=== PATIENT | female | born 1940 | race Caucasian/White ===

== ENCOUNTER → 2022-08-09 08:00 | Outpatient (CLI) | payer OTHER, SELFPAY ==
[2022-07-29 10:41] VITALS: BMI 32.1
[2022-08-08] MEDS: ACETAMINOPHEN 325 MG TABLET 975 MG PO (06:43)
[2022-08-08] MEDS: VANCOMYCIN 1,000 MG/200 ML PIGGYBACK 200 MG IV (06:44)
[2022-08-08] MEDS: CELECOXIB 200 MG CAPSULE PO (06:44)
[2022-08-08 07:10] LABS: COVID19 -Nasal RAPID POSITIVE (Negative)
--- NOTE | 2022-08-08 07:16 | SUR.PREOP ---
Patient tested positive for covid; OR charge nurse and Surgeon Dr Vazquez notified. Patient notified of need to cancel surgery.
--- NOTE | 2022-08-08 07:44 | SUR.PREOP ---
Pt. tested positive for covid . Dr. Vazquez cancelled surgery . Pt instructed to continue lovenox and restart coumadin and notify can sorter today. pt. discharged
== END ==
LOC: AC 14:18 → LAB 08-12 08:43
PROVIDERS: Family Provider Nurse Practitioner; PCP Nurse Practitioner; Referring Provider Orthopaedic Surgery; Visit Provider Orthopaedic Surgery
DX: T84.029A Dislocation of unspecified internal joint prosthesis, initial encounter (principal); Z20.822 Contact with and (suspected) exposure to COVID-19
CPT/HCPCS: 87635; C9803; J1100; J2274; J2405; J2704; J3010

== ENCOUNTER 2022-09-19 06:07 | Inpatient (IN) | payer OTHER, SELFPAY ==
[2022-09-03 07:17] VITALS: BMI 32.1
[2022-09-19] VITALS (17 sets, daily range): BP systolic 103–132; BP diastolic 42–74; PULSE 57–72; RESP 12–18; TEMP 35.3–36.6; O2SAT 92–100; BMI 32.1
--- NOTE | 2022-09-19 | DI.RAD.S_ITS ---
PROCEDURE: XR HIP W PEL IF DONE LT 2V INDICATIONS: LEFT HIP REVISION TECHNIQUE: AP pelvis and lateral view of the left hip acquired. COMPARISON: None. FINDINGS: Bones: Patient is status post left hip arthroplasty, with hardware components in expected positions. The hip joint appears congruent. The visualized bony structures appear intact. Soft tissues: Overlying postoperative changes are noted. No suspicious soft tissue densities. IMPRESSION: Postop changes from left total hip arthroplasty with anatomic left hip alignment. Dictated by: Harish Prajapati M.D. on 09/19/2022 at 11:52 Approved by: Harish Prajapati M.D. on 09/19/2022 at 11:52
[2022-09-19 07:18] LABS: COVID19 -Nasal RAPID Negative (Negative)
[2022-09-19] MEDS: LACTATED RINGERS 1,000 ML 42 ML IV ×2 (07:25→09:04)
[2022-09-19] MEDS: VANCOMYCIN 1,000 MG/200 ML PIGGYBACK 200 MG IV (07:42)
--- NOTE | 2022-09-19 07:46 | PM.PREOP ---
Pre-operative Note COVID-19 COVID-19 status: Negative Interval Note History & Physical reviewed/Exam performed by Physician: Yes Changes to H&P: No
--- NOTE | 2022-09-19 07:47 | PM.OP.1 ---
Operative Date/Time/Diagnoses Date of procedure: 09/19/22 Time of procedure: 07:55 Pre-op diagnosis: left hip instability, trochanteric fracture Post-op diagnosis: same Procedure & Clinicians Procedure: right total hip revision, ORIF trochanter fracture Same procedure as scheduled: Yes Indications: This is an 82-year-old female with history of a left total hip arthroplasty which was done many years ago. She has a multiple level spine fusion. She had a fall and then started having problems with recurrent left hip posterior instability which required multiple reductions. She also had a small trochanteric fracture. She is brought the operating room for a left hip revision. Surgeon: Kylie Vazquez Production Assembly Operator: Chen Sow Anesthesia Type: General Operative Notes Findings: No evidence of component loosening, no evidence consistent with an infection, improved stability with conversion of a left total hip posterior lipped acetabulum to a dual mobility construct. Closure Type: primary Specimen(s): none sent Prosthetic devices, grafts, tissues, transplants, or devices: Vazquez [employer] Nephew size 52 dual mobility liner Oxinium with a +4 femoral head, multiple sutures placed for suture repair of the trochanteric fracture Estimated Blood Loss (mL): 250 Blood products transfused: none Procedure in detail: The patient was seen in the pre-operative area, where the patient identified the left hip as the operative site and this was marked with my initials. The patient received pre-operative antibiotics and was taken to the operating room and placed on the operative table in the right lateral decubitus position after satisfactory anesthesia. A manager learning out was performed. The left leg was prepared from the ankle to the iliac crest with ChloroPrep in the usual fashion and draped through sterile drapes. The hip was approached through an approximately 20 cm incision centered over the greater trochanter and curving gently posteriorly as it went proximally. This was carried sharply to the fascia kristopher, which was divided and retracted with a self retaining retractor. The trochanteric bursa was excised with care being taken to avoid the sciatic nerve, which was identified and protected throughout the case. The residual capsule and short external rotators were incised and the capsulomuscular flap was raised and tagged for later repair. The hip stability was meticulously checked. She had instability in flexion with maximum abduction and about 45? of internal rotation. There was obvious injury to the lip of the lipped liner. There was no fracture but there was obvious deformity. Deep cultures were sent and tissue was sent for PCR. Dissection was carried out around the rim of the acetabular component. There was actually a fairly small amount of fluid in the hip capsule. The hip was dislocated, and the femoral liner was removed. Retractors were placed around the femur. The femoral component was checked and was noted to be stable. The head was removed with a tamp. Retractors were placed to expose the acetabulum. Meticulous dissection was carried out around the acetabulum and the liner was removed without difficulty. Deep cultures were sent deep to the acetabulum. A trial neutral dual mobility liner was placed. A trial reduction was performed with a +0 and a +4 dual mobility construct. With the +4 construct, The patient was stable in the position of sleep, of squatting, and could be put through a range of motion with 45 degrees internal rotation without dislocation. At 90 degrees flexion, internal rotation to 80? was possible before dislocation. There was no impingement. The soft tissue anteriorly was specifically checked to make sure that there was no soft tissue impingement. This was felt to be satisfactory and the appropriate components were opened, and the trials were removed. The acetabular liner was impacted into position. A brief Betadine soak was performed while trialing with head options. The hip was meticulously irrigated with normal saline. Finally the femoral head was impacted onto the stem. The acetabulum was cleared of all material and the hip relocated one final time. The capsulomuscular flap was then repaired to the greater trochanter though an awl hole using the tag sutures. The short external rotators were repaired with a nonabsorbable suture. The trochanteric fracture was fixed with multiple sutures which were non absorbing pulling the hip abductors and the fracture fragment back to the trochanteric region. Adequate reduction was achieved. The fascia kristopher was closed with Vicryl. The subcutaneous layer was closed with barbed sutures and SteriStrips. A ariana dressing was applied and the patient was taken to recovery having tolerated the procedure well. Complications: none Post-operative Condition: stable Disposition: Acute Care Plan for aftercare: The patient will be maintained on a standard total hip replacement protocol with weight bearing as tolerated and posterior hip precautions. No hip abductor strengthening exercises for 6 weeks postoperatively. The patient will receive warfarin and sequential compression devices for DVT prophylaxis. She will not start her Lovenox bridging until Thursday and then I would do bridging for 1-2 days and we will immediately resume her preoperative Coumadin dose. The patient will be discharged home when safe for the home environment.
[2022-09-19] MEDS: CEFAZOLIN 2 GM/100 ML PREMIX 100 ML IV ×2 (08:25→18:20)
[2022-09-19] MEDS: BUPIVACAINE LIPOSOME 266 MG/20 ML VIAL INJ (08:43)
[2022-09-19] MEDS: BUPIVACAINE 0.5% (PF) 30 ML, EPINEPHrine 0.15 MG INJ (08:43)
--- NOTE | 2022-09-19 08:55 | SUR.OPER ---
Lateral on padded OR bed. Gel axillary roll. Arms secured on padded armboard with pillow supporting top arm. Padded hip positioner braces x4 - anterior and posterior chest and pelvis. Additional gel pad used anterior pelvis. Gel pad under bottom leg from knee to foot and secured with tape over sheet.
--- NOTE | 2022-09-19 11:27 | SUR.PHASEI ---
Report given to JESSE Sanchez. Patient VSS and denies pain. Dressing CDI. Patient going to 214. Son called and left VM. No answer. Belonging sent up to patient room (CPAP, and bags of belongings). Rosendo Linda RN.
[2022-09-19] MEDS: ACETAMINOPHEN 325 MG TABLET 650 MG PO ×3 (12:57→23:09)
[2022-09-19] MEDS: LACTATED RINGERS 1,000 ML 100 ML IV ×2 (12:57→23:08)
--- NOTE | 2022-09-19 15:41 | PT.IIE ---
Current Diagnoses Dislocation of unspecified internal joint prosthesis, initial encounter (09/19/22) Presence of left artificial hip joint (09/19/22) Surgery Performed Operation Date: 09/19/22 07:45 Actual Procedures p Total Hip Arthroplasty Revision, acetabular component,(Left) - Kylie Vazquez MD s Open reduction internal fixation, fracture, femur, trochanter(Left) - Kylie Vazquez MD Surgical History (Last Updated 07/29/22 @ 10:49 by Vickie Cuadra RN) History of hysterectomy History of lumbar spinal fusion History of total left hip replacement (05/22/17) History of total left knee replacement History of total right hip replacement Hx of colonoscopy Medical History (Last Updated 09/03/22 @ 08:08 by Vickie Cuadra RN) Acid reflux Anxiety and depression DVT (deep venous thrombosis) History of COVID-19 (08/08/22) Impaired fasting glucose Memory deficit Sleep apnea TIA (transient ischemic attack) (2018) Physical Therapy Inpatient Evaluation/Re-Eval M1 PT/OT-IP Prior Functional Status Start: 09/19/22 14:46 Freq: NEEDED Status: Active Protocol: Document 09/19/22 16:08 CGR (Rec: 09/19/22 16:23 CGR [id number]) Medical Review Prior Functional Status Medical History Reviewed Yes Communication Pt is an effective verbal communicator. Pt is [place] and has hearing aides but does not have them in the hospital. Mobility and Gait Pt was IND in all functional mobility. Activities of Daily Living and IADL's Pt was IND in all ADLs at baseline. Prior Functional Level (Other details) Pt lives with her family in an inlaw suite. Social History Household Members family Living Arrangements Apartment/Condo Number of Floors (Floors) One Floor Number of Stairs To Enter/Railing? Pt has 1 step to enter. Home Environment Standard Height Toilet,Walk in Shower Home Equipment Front Wheel Walker,Four Wheel Walker,Raised Toilet Seat Without Armrests,Shower Seat without Backrest,Grab Bars In Shower Employment Status Retired Additional Social History Comment Pt lives in an inlaw suite on the first floor of the home where her daughter lives. M1 PT/OT-IP Prior Functional Status Start: 09/19/22 16:08 Freq: NEEDED Status: Active Protocol: Document 09/19/22 14:45 LRN (Rec: 09/19/22 18:00 LRN [id number]) Medical Review Prior Functional Status Medical History Reviewed Yes Communication Pt is an effective verbal communicator. Pt is [place] and has hearing aides but does not have them in the hospital. Mobility and Gait Pt was IND in all functional mobility. Activities of Daily Living and IADL's Pt was IND in all ADLs at baseline. Prior Functional Level (Other details) Pt lives with her family in an inlaw suite. Social History Household Members family Living Arrangements Apartment/Condo Number of Floors (Floors) One Floor Number of Stairs To Enter/Railing? Pt reported no step into home, but 2 steps upt to bathroom. Home Environment Standard Height Toilet,Walk in Shower Home Equipment Front Wheel Walker,Four Wheel Walker,Raised Toilet Seat Without Armrests,Shower Seat without Backrest,Grab Bars In Shower Employment Status Retired Additional Social History Comment Pt lives in an inlaw suite at [facility], on the first floor of the home where her son lives. M2 PT-IP Current Condition Start: 09/19/22 14:46 Freq: NEEDED Status: Active Protocol: Document 09/19/22 14:45 LRN (Rec: 09/19/22 18:00 LRN [id number]) Physical Therapy Current Condition Current Condition Evaluation Date 09/19/22 Treatment Diagnosis Revision of L wellness rn RODRIGUEZ /ORIF grtr trochanter of L femur, decr function Onset Date 09/19/22 M3 PT-IP Subjective Start: 09/19/22 14:46 Freq: NEEDED Status: Active Protocol: Document 09/19/22 14:45 LRN (Rec: 09/19/22 18:00 LRN [id number]) Subjective Physical Therapy Visit Type Type Initial Evaluation Visit Start Time 14:45 Visit Stop Time 15:41 Total Visit Minutes 56 Notes 1 Physical Therapy Visit Comments Patient Comments Pt agreeable to therapy. L hip pain rated 3-4/10. Patient Goals Pt goal is to go home to her day light apt at her son's house. Therapy Pain Assessment Pain When Pain Assessed At Rest Pain Present Pain Present Pain Reported Location Left Hip Intensity 4 Scale Used Numeric (0 - 10) M4 PT-IP Mobility and Gait Start: 09/19/22 14:46 Freq: NEEDED Status: Active Protocol: Document 09/19/22 14:45 LRN (Rec: 09/19/22 18:00 LRN [id number]) PT-Bed Mobility Assessment Supine to Sit Supine to Sit Contact Guard Assistance Sit to Supine Sit to Supine Standby Assistance Scooting Scooting to Edge of Bed Standby Assistance PT-Transfer Assessment Sit to and From Stand Sit to and from Stand Standby Assistance Equipment Transfer Assistive Device Gait Belt,Front Wheeled Walker Orthotic/Prosthetic Devices or Brace: No Transfer Ability Level of Assist Standby Assistance Comments Mobility Comments Pt required v. cuing/training for transfer out of bed with reminders of RODRIGUEZ protocol of no forced bending. Pt was able to scoot to EOB, pushing from behind with her hands with v cuing and training. The pt also needed training and cuing for hand placement for sit<>stand transfer, as pt used hands on FWW technique for sit<>stand transfers. Pt able to perform correctly after training and cuing. Gait Assessment Gait Gait Assistance Required: Independent,Standby Assistance Distance (Feet) 80 Able to Maintain Weight Bearing Status Yes During Gait Assistive Devices Assistive Device Gait Belt,Front Wheeled Walker Orthotic/Prosthetic Devices or Brace: No Gait Deviations General Gait Pattern Antalgic,Decreased Stride Length,Narrow Based Gait Factors Limiting Gait Function Factors Limiting Gait Function Pain,Poor Balance Comments Gait Comments During ambulation pt would tend to turn to her L side and needed reminders to always turn to R side to avoid standing pivot on L, leading to IR of L hip. Pt had one episode of increased sway with walking when looking to the left, that she was able to independently regain her balance. The pt did not demonstrate physical distress with ambulation or c/o increase in L hip pain. Pt vitals on return to bed after gait: BP: 121/62, HR 61, SpO2 95% (starting vitals in bed: 135/72; HR 61, SpO2 98%). Stair Climbing Assessment Comments Stair Climbing Comments Deferred due to time constraint. PT-Balance Assessment Sitting Balance and Reactions Static Sitting Balance Ability Good Dynamic Sitting Balance Ability Fair Standing Balance and Reactions Static Standing Balance Ability Good Dynamic Standing Balance Ability Fair M5 PT-IP Objective Assessments Start: 09/19/22 14:46 Freq: NEEDED Status: Active Protocol: Document 09/19/22 14:45 LRN (Rec: 09/19/22 18:00 LRN [id number]) Orientation Orientation/Cognition Level of Alertness Alert Orientation Name,Month,Date,Year,Day of Week,Place,Situation Language Function Ability No Deficits Noted Safety Awareness Understands Safety Issues Comments Pt able to recall 1/3 RODRIGUEZ precautions. Gross Range of Motion Upper Extremity ROM Assessment Within Functional Limits Lower Extremity ROM Assessment Left Impaired Impairments R LE WNL. Strength Upper Extremity Strength Assessment Within Functional Limits Lower Extremity Strength Assessment Left Impaired Comments Strength Comments R hip strength is WNL. M6 PT-IP Treatment Start: 09/19/22 14:46 Freq: NEEDED Status: Active Protocol: Document 09/19/22 14:45 LRN (Rec: 09/19/22 18:00 LRN [id number]) Physical Therapy Treatment Exercises Exercises Ankle Pumps,Gluteal Sets,Quad Sets,Heel Slides,Supine Hip Abduction Education Education Provided Precautions,Weight Bearing Status,Post-Op Packet Other Treatments Other Treatment Performed Bed mobility, transfer and gait training. Issuance and review of post op packet for posterior hip RODRIGUEZ. M7 PT-IP Assessment and Plan Start: 09/19/22 14:46 Freq: NEEDED Status: Active Protocol: Document 09/19/22 14:45 LRN (Rec: 09/19/22 18:00 LRN [id number]) PT Summary Assessment and Plan Potential Rehabilitation Potential Excellent Status of Condition at Evaluation Evolving Summary Impairments Pain,ROM,Strength,Bed Mobility ,Transfers,Gait Assessment Summary Pt is an 82 yo female who is day of post op L RODRIGUEZ revision with ORIF grtr trochanter of L femur who is WBAT with posterior RODRIGUEZ precautions. The pt was able to only recall 1/3 (no forced bending) RODRIGUEZ precautions and had to reminded of precautions as she was transferring to EOB; therefore requiring some assist for scooting. She needed cuing for proper transfer sit<>stand for hand placement and demonstrated an episode of increased sway with ambulation when looking around to the L, but was able to independently regain her balance. She appears to have good endurance and pain tolerance, but should have supervision with walking due to impulsive nature looking around when distracted, leading to potential LOB. Stair training and review of RODRIGUEZ precautions is needed before going home. Goals Bed Mobility Goal Standby Assistance Transfer Goal Independent,Standby Assistance Gait Goal Independent,Standby Assistance Gait Distance 50' Other Goals Pt educated in proper stair ambulation and able to amb 2 steps with walker or hand hold with SBA>Independent. Pt able to recall 3/3 RODRIGUEZ precautions. Days to Meet Goals 1 Frequency of Treatment Frequency Of Treatment Twice a Day Treatment Plan Physical Therapy Treatment Plan Bed Mobility Training,Transfer Training,Gait Training Other Recommendations and Next Treatment Stair training (2 steps) & Focus review of RODRIGUEZ precautions with pt able to recall 3/3 precautions. Precautions Posterior Hip Precautions No Hip Flexion > 90 degrees,No Hip Internal Rotation,No Hip Adduction Weight Bearing Status Weight Bearing Status Weight Bear as Tolerated Recommendations To Nursing Amount of Assist Needed Standby Assistance,1 Person Assist Discharge Recommendations PT Discharge Recommendations Home with Assistance Other Discharge Recommendations Limit sitting < 30 minutes. Transportation Needs at Discharge Private Vehicle
--- NOTE | 2022-09-19 16:03 | OT.IP.EVAL ---
Current Diagnoses Dislocation of unspecified internal joint prosthesis, initial encounter (09/19/22) Presence of left artificial hip joint (09/19/22) Surgery Performed Operation Date: 09/19/22 07:45 Actual Procedures p Total Hip Arthroplasty Revision, acetabular component,(Left) - Kylie Vazquez MD s Open reduction internal fixation, fracture, femur, trochanter(Left) - Kylie Vazquez MD Past Medical History (Last Updated 09/03/22 @ 08:08 by Vickie Cuadra RN) Acid reflux Anxiety and depression DVT (deep venous thrombosis) History of COVID-19 (08/08/22) Impaired fasting glucose Memory deficit Sleep apnea TIA (transient ischemic attack) (2018) Surgical History (Last Updated 07/29/22 @ 10:49 by Vickie Cuadra RN) History of hysterectomy History of lumbar spinal fusion History of total left hip replacement (05/22/17) History of total left knee replacement History of total right hip replacement Hx of colonoscopy Occupational Therapy Inpatient Evaluation/Re-Eval M1 PT/OT-IP Prior Functional Status Start: 09/19/22 14:46 Freq: NEEDED Status: Active Protocol: Document 09/19/22 16:08 CGR (Rec: 09/19/22 16:23 CGR [id number]) Medical Review Prior Functional Status Medical History Reviewed Yes Communication Pt is an effective verbal communicator. Pt is [place] and has hearing aides but does not have them in the hospital. Mobility and Gait Pt was IND in all functional mobility. Activities of Daily Living and IADL's Pt was IND in all ADLs at baseline. Prior Functional Level (Other details) Pt lives with her family in an inlaw suite. Social History Household Members family Living Arrangements Apartment/Condo Number of Floors (Floors) One Floor Number of Stairs To Enter/Railing? Pt has 1 step to enter. Home Environment Standard Height Toilet,Walk in Shower Home Equipment Front Wheel Walker,Four Wheel Walker,Raised Toilet Seat Without Armrests,Shower Seat without Backrest,Grab Bars In Shower Employment Status Retired Additional Social History Comment Pt lives in an inlaw suite on the first floor of the home where her daughter lives. M2 OT-IP Current Condition Start: 09/19/22 16:08 Freq: Status: Active Protocol: Document 09/19/22 16:08 CGR (Rec: 09/19/22 16:23 CGR [id number]) Occupational Therapy Current Condition Current Condition Evaluation Date 09/19/22 Treatment Diagnosis L RODRIGUEZ s/p trocanteric fx Diagnosis Onset Date 09/19/22 Post Operative Precautions Posterior Hip Precautions No Hip Flexion > 90 degrees,No Hip Internal Rotation,No Hip Adduction Weight Bearing Status Weight Bearing Status Weight Bear as Tolerated M3 OT- IP Subjective and Pain Start: 09/19/22 16:08 Freq: Status: Active Protocol: Document 09/19/22 16:08 CGR (Rec: 09/19/22 16:23 CGR [id number]) OT- Subjective Occupational Therapy Visit Type Type Initial Evaluation Visit Start Time 15:39 Visit Stop Time 16:03 Total Visit Minutes 24 Notes Pt just finished with P.T. OT Pain Assessment Pain When Pain Assessed At Rest Pain Present Pain Present Pain Reported Location Left Hip Intensity 4 Scale Used Numeric (0 - 10) Management Techniques Distraction,Modification of Treatment,Re-positioning, Timing of Activity with Medications M4 OT- IP ADL's Start: 09/19/22 16:08 Freq: Status: Active Protocol: Document 09/19/22 16:08 CGR (Rec: 09/19/22 16:23 CGR [id number]) OT NYG-Hand-Ssojwgn Comments OT Self-Feeding Comments not meal time OT ADL-Grooming General Evaluation Grooming Ability Standby Assistance Areas Needing Assistance Combing/Brushing Hair,Face Washing Comments OT Grooming Comments standing at sink OT ADL-Oral Care General Eval Oral Care Ability Standby Assistance Areas of Assistance Brushing Teeth,Retrieving/Set- Up of Items Comments Oral Care Comments standing at sink OT ADL-Dressing Comments OT Dressing Comments Not performed. Pt states she has a hip kit from previous sx and knows how to do all of her dressing with DME. OT ADL-Toileting General Evaluation Toileting Ability Standby Assistance Areas Needing Assistance Manage Clothing,Perform Perineal Hygiene Comments OT Toileting Comments Pt urinated seated on toielt. OT ADL-Bathing Comments OT Bathing Comments not performed M5 OT- IP IADL's Start: 09/19/22 16:08 Freq: Status: Active Protocol: Document 09/19/22 16:08 CGR (Rec: 09/19/22 16:23 CGR [id number]) OT-Instrumental Activities of Daily Living Deficits IADL Deficits Identified No Deficits Home Safety Awareness Awareness of Need for Assistance at Home Good Awareness Ability to Problem Solve Emergency Able to Problem Solve Situations Medication Management Medication Management No Deficits Identified Money Management Money Management No Deficits Identified Meal Preparation Meal Preparation No Deficits Identified Personnel Specialist Personnel Specialist No Deficits Identified Driving Driving Comments 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 M6 OT- IP Functional Cognition Start: 09/19/22 16:08 Freq: Status: Active Protocol: Document 09/19/22 16:08 CGR (Rec: 09/19/22 16:23 CGR [id number]) Cognitive Factors Limiting Selfcare Function Cognitive Ability Level of Alertness Alert Patient Orientation Name,Age,Birthday,Month,Date, Year,Day of Week,Place, Situation Attention Span Ability Capable of Focused Attention, Capable of Sustained Attention Ability to Follow Commands Able to Follow Multi-Step Commands OT- Vision and Hearing OT- Hearing Assessment OT- Hearing Assessment Hearing Impaired,Use of Hearing Aids OT- Vision Assessment Visual Acuity Glasses All The Time Visual Attentiveness WFL Occular Pursuits WFL Visual Convergence WFL M7 OT- IP Mobility and Balance Start: 09/19/22 16:08 Freq: Status: Active Protocol: Document 09/19/22 16:08 CGR (Rec: 09/19/22 16:23 CGR [id number]) OT- Bed Mobility Assessment Supine to Sit Supine to Sit Assist Standby Assistance Sit to Supine Sit to Supine Assist Standby Assistance Scooting Scooting to Edge of Bed Standby Assistance OT-Transfer Assessment Sit to and From Stand Sit to and from Stand Standby Assistance,Contact Guard Assistance Transfers Transfer Ability Standby Assistance,Contact Guard Assistance Technique Transfer Destination Bed,Toilet Transfer Technique Stand Step Pivot Devices Transfer Assistive Devices Gait Belt,Front Wheeled Walker Comments Mobility Comments mobility around the room and into the bathroom. OT- Balance Assessment Sitting Balance and Reactions Static Sitting Balance Ability Good Dynamic Sitting Balance Ability Fair M8 OT- IP Objective Assessments Start: 09/19/22 16:08 Freq: Status: Active Protocol: Document 09/19/22 16:08 CGR (Rec: 09/19/22 16:23 CGR [id number]) OT Gross Range of Motion Upper Extremity Range of Motion Assessment Within Functional Limits OT Strength Upper Extremity Strength Assessment Within Functional Limits OT- Coordination Assessment Upper Extremity Finger to Nose Test Within Functional Limits Finger Tapping Test Within Functional Limits OT-Muscle Tone Assessment Muscle Tone WNL Yes OT Sensation Assessment Edema Edema Absent M9 OT- IP Assessment and Plan Start: 09/19/22 16:08 Freq: Status: Active Protocol: Document 09/19/22 16:08 CGR (Rec: 09/19/22 16:23 CGR [id number]) OT Summary Assessment and Plan Potential Rehabilitation Potential Excellent Analytic Complexity at Evaluation Low Summary OT Impairments Balance,Functional Mobility, Dressing,Toileting,Bathing, Toilet Transfers,Shower Transfers,Activity Tolerance Progress Towards Goals Progressing Toward Goals Assessment Summary Pt presents as a low complexity evaluation s/p LTHA . Pt has had both hips replaced in the past and knows her hip precautions as well as her LB dressing techniques. Pt is safe for discharge home with family support. Goals Grooming Goal Independent Dressing Goal Independent Toileting Goal Independent Bathing Goal Independent Toilet Transfer Goal Independent Shower Transfer Goal Independent Days to Meet Goals 2 Frequency of Treatment Frequency Of Treatment Once a Day Treatment Plan OT Treatment Plan ADL Training,Functional Mobility,Patient/Family Education,Discharge Planning Other Treatment Recommendations and Next shower Treatment Focus Discharge Recommendations OT Discharge Recommendations Home with Assistance Transportation Needs at Discharge Private Vehicle
[2022-09-19] MEDS: WARFARIN 5 MG TABLET 2.5 MG PO (18:20)
[2022-09-19 19:14] LABS: Appearance Urine UA CLEAR; Bilirubin Urine UA NEGATIVE (NEGATIVE); Color Urine UA YELLOW; Glucose Urine UA NEGATIVE (Negative); Ketones Urine UA NEGATIVE (NEGATIVE); Leukocyte Esterase Urine UA 1+ (NEGATIVE); Nitrite Urine UA NEGATIVE (Negative); Occult Blood Urine UA 3+ (Negative); Protein Urine UA NEGATIVE (Negative); Specific Gravity Urine UA <=1.005 (1.000-1.035); Urobilinogen Urine UA 0.2 E.U./dL (0.2)
[2022-09-19 19:26] LABS: Bacteria Urine Occasional (0-1); Culture Indicated Urine Specimen Cultured; RBC Urine 10-30/HPF (0-5/HPF); WBC Urine 5-10/HPF (0-5/HPF)
--- NOTE | 2022-09-19 20:02 | PC.NURSE ---
Post op ortho - UOP is a pinkish brown with lots of sediment. Pt reports she had a UTI about a month ago. She denies pain but reports she was quite sick at the time of her infection. UA obtained and sent to lab. Pt has worked with PT x1, up and amb in the room, Tolerates diet w/out problems. Neurovascular is intact.
[2022-09-19] MEDS: AMLODIPINE 5 MG TABLET 10 MG PO (20:52)
[2022-09-19] MEDS: ATORVASTATIN 20 MG TABLET 40 MG PO (20:52)
[2022-09-19] MEDS: DOCUSATE 100 MG CAPSULE PO (20:53)
[2022-09-19] MEDS: lisinopriL 20 MG TABLET PO (20:53)
[2022-09-19] MEDS: IBUPROFEN 400 MG TABLET PO (21:52)
--- NOTE | 2022-09-19 22:58 | PC.NURSE ---
Patient is alert and oriented. WIYOT and states she did not bring her hearing aids with her to the hospital. Breath sounds CTA with RA sat of 93%; on continuous oximetry. HRR but bradycardic with rate in the 50's. Denies nausea. BT present and states she has passed flatus. Is using external female catheter for urinating but was incontinent related to less than optimal positioning. Is able to move herself in bed. JEFFREY dressing to left lateral hip is CDI and functioning. Gait not assessed but reports having been up with PT and ambulated with 1 assist + walker. CMS is intact although has difficulty lifting left leg off bed. Stated left hip pain was only 5/10 at time of assessment and declined scheduled Ibuprofen but did decide to take it later for 6/10 pain; declines ice pack. Wearing bilateral calf SCD's. Fall risk score is high and bed alarm is activated. Instructed in use of I.S. but only able to get to maximum of 500.
[2022-09-20] MEDS: CEFAZOLIN 2 GM/100 ML PREMIX 100 ML IV (00:05)
[2022-09-20 04:00] VITALS: BP 108/52; PULSE 61; RESP 16; TEMP 36.2; O2SAT 95
[2022-09-20] MEDS: ACETAMINOPHEN 325 MG TABLET 650 MG PO ×2 (05:44→10:58)
[2022-09-20 05:57] LABS: Hematocrit 32.7 % (36-46); Hemoglobin 11.3 g/dL (12.0-16.0); INR 1.5 (0.9-1.3); Prothrombin Time 17.1 SECONDS (10.1-12.7)
[2022-09-20 07:00] VITALS: BP 108/56; PULSE 57; RESP 18; TEMP 36.7; O2SAT 92
--- NOTE | 2022-09-20 07:03 | PM.DS.1 ---
History of Present Illness History of Present Illness Date Patient Seen: 09/20/22 Time Patient Seen: 07:03 Chief complaint: hip pain Narrative: Pain controlled. No fever or chills. Discharge Providers Provider Date of admission: 09/19/22 06:07 Discharge Date: 09/20/22 Primary care physician: GIOVANNI Heart Consults: 09/19/22 11:22 Consult to Discharge Planning Routine Comment: Consult to Physical Therapy Evaluate & Treat Comment: Physician Instructions: post op RODRIGUEZ protocol 09/19/22 14:40 Consult to Occupational Therapy Evaluate & Treat Comment: Physician Instructions: Evaluate and treat Discharge provider: Js Valadez PA-C Summary Hospital Course Discharge Diagnosis: left hip instability, trochanteric fracture Hospital Course: right total hip revision, ORIF trochanter fracture Same procedure as scheduled: Yes Indications: This is an 82-year-old female with history of a left total hip arthroplasty which was done many years ago.? She has a multiple level spine fusion.? She had a fall and then started having problems with recurrent left hip posterior instability which required multiple reductions.? She also had a small trochanteric fracture.? She is brought the operating room for a left hip revision. Surgeon: Kylie Vazquez Ciaio Counter Molder: Chen Sow Anesthesia Type: General Operative Notes Findings: No evidence of component loosening, no evidence consistent with an infection, improved stability with conversion of a left total hip posterior lipped acetabulum to a dual mobility construct. Closure Type: primary Specimen(s): none sent Prosthetic devices, grafts, tissues, transplants, or devices: Vazquez and Nephew size 52 dual mobility liner Oxinium with a +4 femoral head, multiple sutures placed for suture repair of the trochanteric fracture Estimated Blood Loss (mL): 250 Blood products transfused: none Pt. progressing as epected. Mobilize with PT. The patient will be maintained on a standard total hip replacement protocol with weight bearing as tolerated and posterior hip precautions.? No hip abductor strengthening exercises for 6 weeks postoperatively.? The patient will receive warfarin and sequential compression devices for DVT prophylaxis.? She will not start her Lovenox bridging until Thursday and then I would do bridging for 1-2 days and we will immediately resume her preoperative Coumadin dose.? The patient will be discharged home today when safe for the home environment. Exam Vital Signs (past 8 hours): - 09/19/22 23:30 04/15/23 04:00 Temperature 97.3 F L 97.1 F L Pulse Rate 60 61 Respiratory Rate 16 16 Blood Pressure 107/47 L 108/52 L Pulse Oximetry 96 95 Oxygen Flow Rate 0 0 Oxygen Delivery Method Room Air Oxygen Flow Rate 0 Narrative Exam Narrative: Dressing is CDI. NV status intact bilat. LE. Const General: cooperative and comfortable Orientation: alert Resp Effort & Inspection: normal respiratory effort Objective Labs 09/20/22 05:25 Labs: Laboratory Results - last 24 hr 09/19/22 09/19/22 09/20/22 06:50 18:20 05:25 Hgb 11.3 L Hct 32.7 L PT INR Urine Color Yellow Urine Appearance Clear Urine pH 6.0 Ur Specific [place] <=1.005 Urine Protein Negative Urine Glucose (UA) Negative Urine Ketones Negative Urine Occult Blood 3+ H Urine Nitrate Negative Urine Bilirubin Negative Urine Urobilinogen 0.2 Ur Leukocyte Esterase 1+ H Urine RBC 10-30/hpf H Urine WBC 5-10/hpf H Urine Bacteria Occasional (0-1) Ur Culture Indicated? Specimen cultured SARS-CoV-2 (PCR) Negative 09/20/22 05:25 Hgb Hct PT 17.1 H INR 1.5 H Urine Color Urine Appearance Urine pH Ur Specific [place] Urine Protein Urine Glucose (UA) Urine Ketones Urine Occult Blood Urine Nitrate Urine Bilirubin Urine Urobilinogen Ur Leukocyte Esterase Urine RBC Urine WBC Urine Bacteria Ur Culture Indicated? SARS-CoV-2 (PCR) [facility] Medical History Acid reflux Anxiety and depression DVT (deep venous thrombosis) History of COVID-19 (08/08/22) Impaired fasting glucose Memory deficit Sleep apnea TIA (transient ischemic attack) (2018) Surgical History History of hysterectomy History of lumbar spinal fusion History of total left hip replacement (05/22/17) History of total left knee replacement History of total right hip replacement Hx of colonoscopy Social History household members: none Smoking Status: Never smoker alcohol intake: current Discharge Assessment & Plan Assessment and Plan Assessment: Progressing as expected. Plan of Treatment: The patient will be maintained on a standard total hip replacement protocol with weight bearing as tolerated and posterior hip precautions.? No hip abductor strengthening exercises for 6 weeks postoperatively.? The patient will receive warfarin and sequential compression devices for DVT prophylaxis.? She will not start her Lovenox bridging until Thursday and then I would do bridging for 1-2 days and we will immediately resume her preoperative Coumadin dose.? The patient will be discharged home when safe for the home environment. Discharge Plan Discharge Plan Patient Disposition: Home Provider Discharge Comment: Discharge home today after physical therapy Discharge orders & Medications Prescriptions: New polyethylene glycol 3350 17 gram Powder In Packet 17 g PO DAILY PRN (Reason: Constipation) Qty: 14 0RF oxycodone 5 mg Tablet 5 mg PO Q3H PRN (Reason: Pain, Moderate (4-6)) Qty: 60 0RF Continued escitalopram oxalate 20 MG tablet 20 mg PO QAM Qty: 30 warfarin [Coumadin] 2.5 MG tablet 1.25 mg PO SEE INSTRUCTIONS Qty: 0 warfarin [Coumadin] 2.5 MG tablet 2.5 mg PO SEE INSTRUCTIONS Qty: 0 lisinopril 20 MG tablet 20 mg PO BID Qty: 0 carvedilol 6.25 mg Tablet 6.25 mg PO BID Rx Instructions: must administer with a meal/food amlodipine 10 mg Tablet 10 mg PO BEDTIME rosuvastatin 20 mg Tablet 20 mg PO BEDTIME acetaminophen 325 MG tablet 0 mg PO Q4HP PRN (Reason: Pain) enoxaparin 80 mg/0.8 mL syringe 80 mg BID Patient Comments: INJECT 0.8 ML UNDER THE SKIN EVERY 12 HOURS DIRECTED Follow up/Referrals: Katya Hinson ARNP [Primary Care Provider] - Kylie Vazquez MD [Physician] - (2 weeks) Diet/Activity/Treatments Diet: Diet as Tolerated Activity: The patient will be maintained on a standard total hip replacement protocol with weight bearing as tolerated and posterior hip precautions. No hip abductor strengthening exercises for 6 weeks postoperatively Cold/Heat Therapy: Ice to hip as needed Other treatments: The patient will receive warfarin and sequential compression devices for DVT prophylaxis. She will not start her Lovenox bridging until Thursday and then I would do bridging for 1-2 days and we will immediately resume her preoperative Coumadin dose. Skin/Wound/Dressing Care Report to your healthcare provider any signs of infection, such as:: chills, fever, increased pain, unusual drainage and unusual redness Dressing: Keep dressing clean and dry. Juvencio instructions reviewed Visit Report/Discharge Packet Instructions: DI for Hip Replacement, DI for Minimally Invasive Hip Replacement, DI for Prescription Opioid Use Stand Alone Forms: Patient Portal/API, Stroke Signs & Symptoms, Surgery Discharge Discharge Data Primary Care Provider: Katya Hinson Discharges patient from system. Discharge Date/Time: 09/20/22 12:35 Quality VTE Deep Vein Thrombosis/Pulmonary Embolism Present on Admission: No
[2022-09-20] MEDS: IBUPROFEN 400 MG TABLET PO ×2 (08:54→11:58)
[2022-09-20] MEDS: DOCUSATE 100 MG CAPSULE PO (08:55)
[2022-09-20] MEDS: OXYCODONE IR 10 MG TABLET PO ×2 (08:55→11:58)
[2022-09-20 08:56] VITALS: BP 108/56; PULSE 63
[2022-09-20] MEDS: ESCITALOPRAM 10 MG TABLET 20 MG PO (08:59)
[2022-09-20 09:00] VITALS: BP 108/56; PULSE 59
--- NOTE | 2022-09-20 10:00 | PT.IPTN ---
Current Diagnoses Dislocation of unspecified internal joint prosthesis, initial encounter (09/19/22) Presence of left artificial hip joint (09/19/22) Surgery Performed Operation Date: 09/19/22 07:45 Actual Procedures p Total Hip Arthroplasty Revision, acetabular component,(Left) - Kylie Vazquez MD s Open reduction internal fixation, fracture, femur, trochanter(Left) - Kylie Vazquez MD Physical Therapy Treatment Note M2 PT-IP Current Condition Start: 09/19/22 14:46 Freq: NEEDED Status: Active Protocol: Document 09/19/22 14:45 LRN (Rec: 09/19/22 18:00 LRN [id number]) Physical Therapy Current Condition Current Condition Evaluation Date 09/19/22 Treatment Diagnosis Revision of L clinical trial specialist RODRIGUEZ /ORIF grtr trochanter of L femur, decr function Onset Date 09/19/22 M3 PT-IP Subjective Start: 09/19/22 14:46 Freq: NEEDED Status: Active Protocol: Document 09/20/22 10:59 TS (Rec: 09/20/22 11:11 TS [id number]) Subjective Physical Therapy Visit Type Type Treatment Note Visit Start Time 10:00 Visit Stop Time 10:18 Total Visit Minutes 18 Physical Therapy Visit Comments Patient Comments Pt reports feeling good this morning, ready to go home, agreeable to PT session. Patient Goals Pt goal is to go home to her day light apt at her son's house. M4 PT-IP Mobility and Gait Start: 09/19/22 14:46 Freq: NEEDED Status: Active Protocol: Document 09/20/22 10:59 TS (Rec: 09/20/22 11:11 TS [id number]) PT-Transfer Assessment Sit to and From Stand Sit to and from Stand Standby Assistance Equipment Transfer Assistive Device Gait Belt,Front Wheeled Walker Orthotic/Prosthetic Devices or Brace: No Comments Mobility Comments Pt found resting in hipolito, agreeable to PT session. Pt recalled 2/3 posterior hip precuations(internal rotation) . Pt performed sit to stand x1 from chair with BUE support on arms of chair with no AD. She ambulated in hallway ~250' SBA with step to antalgic gait, no buckling or LOB. She performed stairs x6 SBA with UE support on handrails, no noted LOB. Pt was left in chair with call light nearby, all needs met. Gait Assessment Gait Gait Assistance Required: Standby Assistance Distance (Feet) 250 Able to Maintain Weight Bearing Status Yes During Gait Assistive Devices Assistive Device Gait Belt,Front Wheeled Walker Orthotic/Prosthetic Devices or Brace: No Gait Deviations General Gait Pattern Antalgic,Decreased Stride Length,Decreased Feet Clearance,Narrow Based Gait Comments Gait Comments See mobility comments. Stair Climbing Assessment Evaluation Level of Assist On Stairs Standby Assistance Devices Stair Climbing Assistive Devices Left Railing,Right Railing Technique/Endurance Stair Climbing Direction Ascend and Descend Stair Climbing Technique Step to Step Number of Steps Climbed 6 Comments Stair Climbing Comments See mobility comments PT-Balance Assessment Sitting Balance and Reactions Static Sitting Balance Ability Normal Dynamic Sitting Balance Ability Good Standing Balance and Reactions Static Standing Balance Ability Good Dynamic Standing Balance Ability Fair M5 PT-IP Objective Assessments Start: 09/19/22 14:46 Freq: NEEDED Status: Active Protocol: Document 09/19/22 14:45 LRN (Rec: 09/19/22 18:00 LRN [id number]) Orientation Orientation/Cognition Level of Alertness Alert Orientation Name,Month,Date,Year,Day of Week,Place,Situation Language Function Ability No Deficits Noted Safety Awareness Understands Safety Issues Comments Pt able to recall 1/3 RODRIGUEZ precautions. Gross Range of Motion Upper Extremity ROM Assessment Within Functional Limits Lower Extremity ROM Assessment Left Impaired Impairments R LE WNL. Strength Upper Extremity Strength Assessment Within Functional Limits Lower Extremity Strength Assessment Left Impaired Comments Strength Comments R hip strength is WNL. M6 PT-IP Treatment Start: 09/19/22 14:46 Freq: NEEDED Status: Active Protocol: Document 09/20/22 10:59 TS (Rec: 09/20/22 11:11 [id number]) Physical Therapy Treatment Education Education Provided Precautions,Weight Bearing Status,Post-Op Packet Other Treatments Other Treatment Performed Educated pt on hip precautions , recalled 2/3. M7 PT-IP Assessment and Plan Start: 09/19/22 14:46 Freq: NEEDED Status: Active Protocol: Document 09/20/22 10:59 TS (Rec: 09/20/22 11:11 [id number]) PT Summary Assessment and Plan Potential Rehabilitation Potential Excellent Status of Condition at Evaluation Evolving Summary Impairments Pain,ROM,Strength,Bed Mobility ,Transfers,Gait Assessment Summary Pt progressed her ambulation distance to SBA ~250' and SBA for stairs x6 with UE handrail assist, no signs of buckling or LOB. Pt continues to recall 2/3 posterior hip precautions (no internal rotation). PT is recommending pt return home with assist from family. She has multiple family members at home that can assist her with her needs. Goals Bed Mobility Goal Standby Assistance Transfer Goal Independent,Standby Assistance Gait Goal Independent,Standby Assistance Gait Distance 50' Other Goals Pt able to recall 3/3 RODRIGUEZ precautions. Days to Meet Goals 1 Frequency of Treatment Frequency Of Treatment Twice a Day Treatment Plan Physical Therapy Treatment Plan Bed Mobility Training,Transfer Training,Gait Training Other Recommendations and Next Treatment Stair training (2 steps) & Focus review of RODRIGUEZ precautions with pt able to recall 3/3 precautions. Precautions Posterior Hip Precautions No Hip Flexion > 90 degrees,No Hip Internal Rotation,No Hip Adduction Weight Bearing Status Weight Bearing Status Weight Bear as Tolerated Recommendations To Nursing Amount of Assist Needed Standby Assistance Discharge Recommendations PT Discharge Recommendations Home with Assistance Other Discharge Recommendations Limit sitting < 30 minutes. Transportation Needs at Discharge Private Vehicle
[2022-09-20] MEDS: OXYCODONE IR 5 MG TABLET PO (10:59)
--- NOTE | 2022-09-20 11:17 | CM.DANOTE ---
Patient is an 82 yo female who was admitted on 09/19/22 for LTHA revision. Pt has [facility] [facility] [employer] for insurance and her PCP is Katya Hinson. EMR was reviewed. Per Ortho PA, pt tolerated procedure well and medically stable to d/c home today after further PT. Per PT and COOKIE BREAKER, recommending safe d/c home with assist and pt was able to tolerate stairs today and review of precautions and safe for d/c today. Per RN, calling pt's son now to update him and set up time for transport home. Pt is a and resides with son and DIL and they assist as needed but pt typically is independent with ADLs and active. Pt and family do not anticipate any needs at discharge. No further bedside assessment due to triage needs. plan: Patient to d/c home via son POV today and outpt f/u with Ortho and family assist. No further SW needs at this time. YOBANI Guaman Discharge Planning/Care Management Advanced directive, confirm from FAMILY Start: 09/19/22 11:40 Freq: Q24H Status: Active Protocol: Document 09/19/22 15:43 CEW (Rec: 09/19/22 15:43 CEW [id number]) Advance Directive, confirm on record Time 11:30 Person contacted Pt Copy received No Pre-Anesthesia Assessment Start: 09/03/22 07:17 Freq: Status: Complete Protocol: Document 09/03/22 07:17 CAB (Rec: 09/03/22 08:12 CAB [id number]) Pre-Anesthesia Assessment Patient Information Reviewed Via Phone Assessment Assessment Completed With Patient Primary Care Provider Katya Hinson Seen Specialist in Last 12 Months Yes Specialist Seen Opthamologist/Gang Bore Operator, Orthopedist,Commissary Representative Primary Language Lao Caustics Loader Required No Height 154.94 cm Weight 77.111 kg Body Mass Index (BMI) 32.1 Hearing Ability Hearing Impaired,Use of Hearing Aid Visual Assist Glasses Dentition Type Full- Upper Barriers to Learning Auditory Hx Anesthesia Reactions No Hx Family Anesthesia Reaction No Hx Malignant Hyperthermia No Hx Blood Transfusions No Anesthesia Review Requested Yes: Prior review completed -scanned to record, ok to proceed 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 No Does patient have MICHAELS/SOB No Hx Sleep Apnea Yes: ASV machine CPAP/BIPAP use prescribed and used routinely Will Bring CPAP/BIPAP DOS Yes Currently Taking a Beta Juan Luis Yes: Carvedilol Hx Chest Pain No Hx SOB No Hx Syncope or Dizziness No Anti-Coagulant Therapy Yes: Warfarin-pt advised to hold 5 days prior per warfarin clinic Has a Summer Law Associate No Cardiac Testing No Hx Pacemaker/ICD No Pacemaker Rep Required? No Cardiac Clearance Received Not Applicable Diet Type At Home Regular Dysphagia No Gastrointestinal Symptoms Constipation,Reflux Bladder Pattern Incontinent, Stress Urinary Catheter Present No Hx Urinary Self Catheterization No Diabetes No Patient No Lactating No Hx Drug Resistant Organism No Presence of External or Internal Medical Yes: ASV machine, prashanth hips, Devices left knee, lumbar Have you had any close contact with No someone diagnosed with COVID-19? Received a COVID vaccine? Yes Received all doses? No Comment Pt history of Covid 08/08/22 Marital Status / Lives With none Current Living Arrangements Apartment/Condo Comment Pt lives on son's property Does the Patient Have Assistance After Yes: Family will assist with Surgery care @ [place] Patient Discharge Plan Description Return Home Feels Safe in Current Environment Yes Been Physically Hurt or Threatened By a No Person in Current Environment Do you have thoughts of harming yourself None or others? Are you currently considering suicide? No Do you have a plan to hurt yourself or No Plan others? Do You Have Any Spiritual Beliefs That No May Affect Your HC Choices? Do You Have Any Cultural Practices That No May Affect Your HC Choices? Comment Yarsani Who Can We Speak to About Patient's Care Family, friends Identifying Code for Release of Patient Declines to issue Information Health Care Proxy/Next of Kin Js (son) Health Care Proxy Emergency Contact Name Sara ([id number]) Emergency Contact Advance Directives? Yes Advance Directives on File Yes Power of Highway Engineering Technician Yes: On File PAC Instructions Bring CPAP/BIPAP,Do not shave/ clip surgical site,Durable medical equipment,Medications to take/avoid,Nasal antibiotic ,No ETOH/petroleum product on skin DOS,NPO,Pre-surgical wash ,Sensory aids,Sturdy shoes/ comfortable clothes,Do not bring valuables and remove jewelry
[2022-09-20 12:18] VITALS: BP 96/52; PULSE 58; RESP 18; TEMP 36.4; O2SAT 91
--- NOTE | 2022-09-20 13:31 | PC.NURSE ---
Pt discharged and verbalized understanding of the D/C instructions, hip replacement precautions, how to take pain medication and when. Pt and family members verbalized understanding of how to care for the JEFFREY dressing and when to call the ortho surgeon. Pt's cell phone, clothing, walker, and CPAP machine went with pt. Pt wheeled out to POV with family. Pt A&Ox4 and VSS.
[2022-10-08 08:32] LABS: Bacteria Det by PCR Univ WA NONE DETECTED
== END 2022-09-20 12:35 | disposition home or self-care (01) | DRG 467 ==
PROVIDERS: Admitting Provider Orthopaedic Surgery; Family Provider Nurse Practitioner; PCP Nurse Practitioner; Referring Provider Orthopaedic Surgery; Visit Provider Orthopaedic Surgery
PROC: 0QS704Z Reposition Left Upper Femur with Internal Fixation Device, Open Approach (ICD-10-PCS; principal; 2022-09-19 07:45)
PROC: 0QS704Z Reposition Left Upper Femur with Internal Fixation Device, Open Approach (ICD-10-PCS; CPT 27245; 2022-09-19 07:45)
DX: S72.112A Displaced fracture of greater trochanter of left femur, initial encounter for closed fracture (principal); T84.021A Dislocation of internal left hip prosthesis, initial encounter; M16.0 Bilateral primary osteoarthritis of hip; X58.XXXA Exposure to other specified factors, initial encounter; Z96.643 Presence of artificial hip joint, bilateral; Z20.822 Contact with and (suspected) exposure to COVID-19; Z86.718 Personal history of other venous thrombosis and embolism; Z79.01 Long term (current) use of anticoagulants
CPT/HCPCS: 36415; 73502; 81001; 85014; 85018; 85610; 87070; 87075; 87086; 87205; 87635; 87801; 94762; 97110; 97116; 97162; 97165; 97530; 97535; C1776; C9803; C9290; J0171; J0690; J2405; J2704; J3010